=== PATIENT | male | born 1980 | race Caucasian/White ===

== ENCOUNTER 2017-09-20 20:44 | Emergency (ER) | payer OTHER ==
[~2017-09-20] VITALS: Ht 170.2 cm; Wt 68.0 kg
[2017-09-20] MEDS ORDERED: KEFLEX500 M1 PO (23:13)
[2017-09-20] MEDS ORDERED: HYDROCODONE-AP1 EAC6 PO (23:13)
[2017-09-20] MEDS ORDERED: GLIPIZIDE5 MG PO ×2 (23:15→23:26)
[2017-09-20] MEDS ORDERED: METFORMIN HCL850 MG PO ×2 (23:15→23:26)
[2017-09-20] MEDS ORDERED: LISINOPRIL20 MG PO ×2 (23:15→23:26)
[2017-09-21 00:02] VITALS: BP 133/78
== END 2017-09-21 00:02 | disposition home or self-care (01) ==
LOC: ER 20:44
DX: S92.422A Displaced fracture of distal phalanx of left great toe, initial encounter for closed fracture (principal); S91.112A Laceration without foreign body of left great toe without damage to nail, initial encounter; E11.9 Type 2 diabetes mellitus without complications; W26.8XXA Contact with other sharp object(s), not elsewhere classified, initial encounter; Y93.89 Activity, other specified; Y92.89 Other specified places as the place of occurrence of the external cause; Y99.8 Other external cause status